=== PATIENT | male | born 1970 | race Caucasian/White ===

== ENCOUNTER 2021-12-11 14:34 | Observation (INO) ==
[2021-12-11] MEDS ORDERED: ASPIRIN CHEW 324 MG PO STA (14:52)
--- NOTE | 2021-12-11 14:57 | Emergency Department Note ---
History of Present Illness General Chief Complaint: Chest Pain Stated Complaint: chest pain Time Seen by Provider: 12/11/21 14:48 History of Present Illness Provider Complaint: chest pain Onset (ago): day(s) 5 Duration: intermittent Onset: during rest Pain Location: substernal and left chest Pain Radiation: LUE Severity: moderate Maximum Pain Intensity: 5 Current Pain Intensity: 0 Quality: + aching, + heaviness and + dull Relieved By: + nothing Exacerbated By: + nothing Context: no recent illness, no recent surgery, no recent immobilization, no recent travel, no trauma/injury, no new medications or no history of DVT/PE Associated symptoms: no vomiting, no dyspnea, no palpitations, no fever, no cough or no leg swelling Treatments prior to arrival: none Home Medications Medication Instructions Recorded Confirmed Type capsaicin 0.025 % topical cream 1 applic TOPICAL TID PRN 12/11/21 12/11/21 H istory cetirizine 10 mg tablet 10 mg PO DAILY 12/11/21 12/11/21 History diclofenac sodium 50 mg 50 mg PO TID PRN 12/11/21 12/11/21 History tablet,delayed release pantoprazole 40 mg tablet,delayed 40 mg PO DAILY 12/11/21 12/11/21 History release Allergies Allergy/AdvReac Type Severity Reaction Status Date / Time Penicillins Allergy Unknown Verified 12/11/21 15:34 OC SPRAY CONTRAINDICATION Allergy Unknown Uncoded 12/11/21 15:34 Past Med/Surg History Medical History Abdominal pain No pertinent family history Surgical History No pertinent past surgical history Social History Smoking Status: Unknown if ever smoked Preferred Language: Icelandic Feels Safe at Home: Hesitant to Answer Review of Systems A total of 10 systems reviewed and were otherwise negative Physical Exam Vital Signs Vital Signs - 24 hr 12/11/21 14:52 12/11/21 14:56 12/11/21 15:00 Pulse Rate 77 78 75 Pulse Rate from SpO2 Sensor 78 75 Pulse Rhythm Regular Respiratory Rate 17 26 H Pulse Oximetry 99 94 94 Oxygen Delivery Method Room Air Sepsis Recent Fever Within 48 Hours Sepsis New/Unexplained Change in Mental Status Sepsis Action Taken by Nursing 12/11/21 15:30 12/11/21 15:45 Pulse Rate 75 Pulse Rate from SpO2 Sensor 70 Pulse Rhythm Respiratory Rate 14 Pulse Oximetry 98 99 Oxygen Delivery Method Room Air Sepsis Recent Fever Within 48 Hours No Sepsis New/Unexplained Change in Mental Status N/A Sepsis Action Taken by Nursing No Action Required Physical Exam GENERAL: He is oriented to person, place, and time. He appears well-developed and well-nourished. He does not appear distressed. HENT: Exam performed. - Head: Normocephalic and atraumatic. - Right Ear: External ear normal. No mastoid tenderness. - Left Ear: External ear normal. No mastoid tenderness. - Mouth/Throat: The oropharynx is clear and moist. No trismus in the jaw. No dental abscesses or uvula swelling. No oropharyngeal exudate or tonsillar abscesses. EYES: Conjunctivae and EOM are normal. Pupils are equal, round, and reactive to light. Right eye exhibits no discharge. Left eye exhibits no discharge. No scleral icterus. NECK: Normal range of motion. Neck supple. No JVD present. No spinous process tenderness present. No carotid bruit present. No rigidity. No tracheal deviation and normal range of motion present. No Brudzinski's sign and no Kernig's sign noted. CV: Normal rate, regular rhythm, normal heart sounds and intact distal pulses. There is no peripheral edema. Palpable radial pulses bue. PULM/CHEST: Effort normal and breath sounds normal. No respiratory distress. No stridor. He has no wheezes. He has no rales. - Chest Wall: He exhibits no tenderness. ABD: The abdomen is soft. Bowel sounds are normal. He has no distension. No mass is present. There is no tenderness. There is no rebound, no guarding, no Jacinto's sign and no tenderness at McBurney's point. Rovsig negative. MUSC/SKEL: Normal range of motion. There is no peripheral edema, tenderness or deformity. LYMPH: No cervical adenopathy. NEURO: He is alert and oriented to person, place, and time. He has normal strength. No cranial nerve deficit or sensory deficit. Coordination and gait normal. GCS eye subscore is 4. GCS verbal subscore is 5. GCS motor subscore is 6. Cerebellar tests wnl. SKIN: Skin is warm and dry. He is not diaphoretic. PSYCH: He has a normal mood and affect. Behavior is normal. Judgment and thought content normal. Course Course 1448: The patient was evaluated in room B12. A complete history and physical exam was performed Cardiac monitoring: An order was placed for continuous cardiac monitoring. The monitor shows a rate of 80 with sinus rhythm 1616: Vital signs stable. Patient reports no chest pain or difficulty breathing at this time. Labs and imaging within normal limits. Given the patient's new left bundle branch block and his complaint of chest pain the patient will be admitted to the hospitalist team. Spoke with Samreen stated to admit to Dr. Hsu Administered Medications Discontinued Medications Aspirin (Aspirin Chew 324 Mg) 324 mg PO NOW STA Stop: 12/11/21 14:53 Last Admin: 12/11/21 15:18 Dose: Not Given Documented by: [id number] Medical Decision Making Laboratory Data Result diagrams: 12/11/21 14:25 12/11/21 14:25 Labs: Lab Results 12/11/21 12/11/21 12/11/21 Range/Units 14:25 14:25 15:05 WBC 8.25 (4.8-10.8) K/uL RBC 5.65 (4.7-6.1) M/uL Hgb 15.9 (14.0-18.0) g/dL Hct 46.3 (42-52) % MCV 81.9 (80-100) fL MCH 28.1 (25-34) pg MCHC 34.3 (32-36) g/dL RDW Std Deviation 39.7 (36.4-46.3) fL RDW Coeff of [place] 13.3 (11.5-14.5) % Plt Count 296 (130-400) K/uL MPV 10.1 (7.4-10.4) fL Immature Gran % (Auto) 0.4 % Neut % (Auto) 66.3 % Lymph % (Auto) 25.9 % Ocean % (Auto) 5.2 % Eos % (Auto) 1.6 % Baso % (Auto) 0.6 % Neut # (Auto) 5.47 (1.4-6.5) K/uL Lymph # (Auto) 2.14 (1.2-3.4) K/uL Ocean # (Auto) 0.43 (0.11-0.59) K/uL Eos # (Auto) 0.13 (0-0.5) K/uL Baso # (Auto) 0.05 (0-0.2) K/uL Immature Gran # (Auto) 0.03 H (0.00-0.02) K/uL Sodium 138 (136-145) mmol/L Potassium 4.0 (3.5-5.1) mmol/L Chloride 106 (98-107) mmol/L Carbon Dioxide 24 (21-32) mmol/L Anion Gap 8 (3-11) BUN 12 (6-23) mg/dl Creatinine 0.96 (0.6-1.4) mg/dl Est Cr Clr Drug Dosing Not Reportable Est GFR ( Amer) 106.4 ml/min Est GFR (Non-Af Amer) 91.8 ml/min BUN/Creatinine Ratio 12.5 (10-20) Glucose 86 (70-99(Fasting)) mg/dl Calcium 9.7 (8.5-10.1) mg/dl Troponin I High Sens 3.8 (0-20) pg/ml Lipase 43 (11-82) U/L SARS-CoV-2, RNA, NAAT NEGATIVE (NEGATIVE) Imaging Data Chest x-ray: Radiologist's impression: Chest X-Ray 12/11/21 14:52 XR chest 1V portable HISTORY: Atypical Chest Pain COMPARISON: None. FINDINGS: The lungs are clear. Cardiac silhouette is normal in size. No pleural effusions. No pneumothorax. IMPRESSION: No acute process. ACT 112: Negative or not required by law. Electronically signed by: Girma Lee M.D. 12/11/2021 3:56 PM ECG Data Indication: chest pain Rate (beats per minute): 81 Rhythm: normal sinus Findings: + LBBB; no prolonged QT Comparison ECG Date: from (May 2019) Change: the following changes noted (patient has new LBBB) MDM Narrative Vital signs stable. Patient reports no chest pain or difficulty breathing at this time. Labs and imaging within normal limits. Given the patient's new left bundle branch block and his complaint of chest pain the patient will be admitted to the hospitalist team. Impression & Plan Chest pain Discharge Plan Visit Data Chief Complaint: Chest Pain Stated Complaint: chest pain ED Provider: Liz,Mejia Discharge Problem: Chest pain Patient Disposition: Being Evaluated by Hospitalist Forms Stand Alone Forms: [facility] [place] [employer] Prescriptions Prescriptions: No Action diclofenac sodium 50 mg Tablet,Delayed Release (Dr/Ec) 50 mg PO TID PRN (Reason: Pain) RF: 0 cetirizine 10 mg Tablet 10 mg PO DAILY RF: 0 pantoprazole 40 mg Tablet,Delayed Release (Dr/Ec) 40 mg PO DAILY RF: 0 capsaicin 0.025 % Cream 1 applic TOPICAL TID PRN (Reason: FLARE UPS) RF: 0 Referrals Referrals: Phani TABARES [Primary Care Provider] - Discharge Problem: Chest pain Qualifiers: Chest pain type: unspecified Qualified Code(s): R07.9 - Chest pain, unspecified
[2021-12-11 15:23] LABS: Basophils # (auto) 0.05 K/uL (0-0.2); Basophils % (auto) 0.6 %; Eosinophils # (auto) 0.13 K/uL (0-0.5); Eosinophils % (auto) 1.6 %; Hematocrit (blood only) 46.3 % (42-52); Hemoglobin 15.9 g/dL (14.0-18.0); Immature Granulocytes # (auto) 0.03 K/uL (0.00-0.02); Immature Granulocytes % (auto) 0.4 %; Lymphocytes # (auto) 2.14 K/uL (1.2-3.4); Lymphocytes % (auto) 25.9 %; Mean Corpuscular Hemoglobin 28.1 pg (25-34); Mean Corpuscular Hgb Conc 34.3 g/dL (32-36); Mean Corpuscular Volume 81.9 fL (80-100); Mean Platelet Volume 10.1 fL (7.4-10.4); Monocytes # (auto) 0.43 K/uL (0.11-0.59); Monocytes % (auto) 5.2 %; Neutrophils # (auto) 5.47 K/uL (1.4-6.5); Neutrophils % (auto) 66.3 %; Platelet Count 296 K/uL (130-400); RDW Coefficient of Variation 13.3 % (11.5-14.5); RDW Standard Deviation 39.7 fL (36.4-46.3); Red Blood Count 5.65 M/uL (4.7-6.1); White Blood Count 8.25 K/uL (4.8-10.8)
[2021-12-11 15:25] LABS: Anion Gap 8 (3-11); BUN Creatinine Ratio 12.5 (10-20); Blood Urea Nitrogen 12 mg/dl (6-23); Calcium 9.7 mg/dl (8.5-10.1); Carbon Dioxide 24 mmol/L (21-32); Chloride 106 mmol/L (98-107); Est GFR (African American) 106.4 ml/min; Est GFR (Non-African American) 91.8 ml/min; Glucose 86 mg/dl (70-99(Fasting)); Lipase 43 U/L (11-82); Sodium 138 mmol/L (136-145)
[2021-12-11 15:31] LABS: Troponin I High Sensitivity 3.8 pg/ml (0-20)
--- NOTE | 2021-12-11 15:57 | XRay Report ---
XR chest 1V portable HISTORY: Atypical Chest Pain COMPARISON: None. FINDINGS: The lungs are clear. Cardiac silhouette is normal in size. No pleural effusions. No pneumot horax. IMPRESSION: No acute process. ACT 112: Negative or not required by law. Electronically signed by: Girma Lee M.D. 12/11/2021 3:56 PM
--- NOTE | 2021-12-11 16:24 | History & Physical Report ---
Date of Service December 11, 2021 Assessment & Plan (1) Chest pain: Plan: Intermittent chest pain and palpitations x 5-7 days - more persistent today. New LBBB on EKG per PA at [facility], confirmed LBBB in ED. - Observe on telemetry - Serial troponin - Repeat EKG in AM - Consult cardiology - will make pt NPO after midnight in case cath is needed - If recurrent chest pain or troponin elevation, consider addition of heparin gtt - Start aspirin 81 mg daily - Labs in AM to include lipids, A1c, and TSH - Check ECHO (2) GERD (gastroesophageal reflux disease): (3) Allergic rhinitis: Plan: Continue other outpatient medications as appropriate Pt seen and evaluated with collaborating physician, Dr. Hsu. Plan of care discussed and as outlined above. DVT Prophylaxis: subQ heparin Code Status: Full code Rene Carter PA-C History of Present Illness Chief Complaint: Chest pain Primary Care Provider: [facility] This is a 51 y/o male with a PMH of GERD, seasonal allergies and OA who was brought to the ED today from [facility] with chest pain x 5-7 days. He describes palpitations with "skipping" beats with associated ache in chest with radiation to left arm and shoulder but not to the neck. These symptoms have been intermittent x past few days but more persistent today so brought for evaluation. Never had cardiac issues in the past. No chest pain at present. No specific aggravating or alleviating factors. Breathing feels like it's catching when he has the symptoms but is okay otherwise. Prior to today symptoms lasted 20 minutes at most. No trauma to the chest. Denies current tobacco or EtOH. Does drink coffee - 3-4 cups/day. No abd pain, N/V/D, fevers, chills, sweats, visual changes, dizziness, weakness. Father had a history of cardiac issues including prior [place] - at age 40. Pt does report that he recently starte d diclofenac for arthritis pain but only using PRN - not TID as prescribed. Allergies Allergy/AdvReac Type Severity Reaction Status Date / Time Penicillins Allergy Unknown Verified 12/11/21 15:34 OC SPRAY CONTRAINDICATION Allergy Unknown Uncoded 12/11/21 15:34 Home Medications Medication Instructions Recorded Confirmed Type capsaicin 0.025 % topical cream 1 applic TOPICAL TID PRN 12/11/21 12/11/21 History cetirizine 10 mg tablet 10 mg PO DAILY 12/11/21 12/11/21 History diclofenac sodium 50 mg 50 mg PO TID PRN 12/11/21 12/11/21 History tablet,delayed release pantoprazole 40 mg tablet,delayed 40 mg PO BID 12/11/21 12/11/21 History release Past Med/Surg History Medical History (Updated 12/11/21 @ 17:08 by Fern Carter PA-C) Allergic rhinitis GERD (gastroesophageal reflux disease) Osteoarthritis Surgical History No pertinent past surgical history Family History (Updated 12/11/21 @ 17:08 by Fern Carter PA-C) Father Diabetes Myocardial infarction Kidney disease Social History (Updated 12/11/21 @ 17:08 by Fern Carter PA-C) Smoking Status: Former smoker Smoking End Date: quit 12 years; Do You Dip or Chew Tobacco: No; Hx Alcohol Use: No (not last 20 years) Hx Substance Use: No Preferred Language: French Communication Ability: Effective Disciplinary Hearing Officer Required: No Beliefs That Will Affect Care: None Current Living Situation: Other Current Living Situation Comment: Immate from [facility] Feels Safe at Home: Yes Safety Concerns: Feels Safe At This Time Review of Systems Review of Systems: All systems reviewed & are unremarkable except as noted in HPI & below Constitutional: no fever, no chills and no sweats Eyes: no diplopia and no worsening vision Respiratory: no cough and no dyspnea Cardiovascular: as per Subjective / HPI Gastrointestinal: no abdominal pain, no nausea, no vomiting and no diarrhea/loose stools Genitourinary: no dysuria Musculoskeletal: no back pain and no neck pain Integumentary: no rash and no yellowing of the skin Neurologic: no dizziness, no syncope and no headache(s) Psychiatric: no depression and no anxiety Physical Exam Constitutional: well developed and well nourished; no acute distress Eyes: + anicteric sclerae Neck: trachea midline Respiratory: no respiratory distress and no labored breathing Auscultation: lungs clear to auscultation bilaterally; no rales, no rhonchi and no wheezes Cardiovascular: Rate/Rhythm: regular rate and regular rhythm Heart Sounds: no murmur Vessels: posterior tibial pulses present and radial pulses present Extremities: no pedal edema Gastrointestinal (Abdomen): Inspection/Auscultation: normal bowel sounds; abdomen not distended Percussion/Palpation: abdomen soft; abdomen nontender Musculoskeletal: Head/Neck/Chest: normocephalic, head atraumatic and neck supple Skin: no jaundice Neurologic: moves all extremities; no focal motor deficits Psychiatric: A+Ox3, euthymic affect Results & Data Results & Data ([facility]) Vital Signs (Past 12 Hours) Vital Signs Pulse Resp Pulse Ox 12/11/21 15:45 99 12/11/21 15:30 75 14 98 12/11/21 15:00 75 26 H 94 12/11/21 14:56 78 17 94 12/11/21 14:52 77 99 Laboratory Results Laboratory Results - last 24 hr 12/11/21 12/11/21 12/11/21 14:25 14:25 15:05 WBC 8.25 RBC 5.65 Hgb 15.9 Hct 46.3 MCV 81.9 MCH 28.1 MCHC 34.3 RDW Std Deviation 39.7 RDW Coeff of Frank[place] 13.3 Plt Count 296 MPV 10.1 Immature Gran % (Auto) 0.4 Neut % (Auto) 66.3 Lymph % (Auto) 25.9 Marin % (Auto) 5.2 Eos % (Auto) 1.6 Baso % (Auto) 0.6 Neut # (Auto) 5.47 Lymph # (Auto) 2.14 Marin # (Auto) 0.43 Eos # (Auto) 0.13 Baso # (Auto) 0.05 Immature Gran # (Auto) 0.03 H Sodium 138 Potassium 4.0 Chloride 106 Carbon Dioxide 24 Anion Gap 8 BUN 12 Creatinine 0.96 Est Cr Clr Drug Dosing Not Reportable Est GFR ( Amer) 106.4 Est GFR (Non-Af Amer) 91.8 BUN/Creatinine Ratio 12.5 Glucose 86 Calcium 9.7 Troponin I High Sens 3.8 Lipase 43 SARS-CoV-2, RNA, NAAT NEGATIVE Diagnostic Findings Chest X-ray 12/11/21 - IMPRESSION: No acute process. Medications Administered Discontinued Medications Aspirin (Aspirin Chew 324 Mg) 324 mg PO NOW STA Stop: 12/11/21 14:53 Last Admin: 12/11/21 15:18 Dose: Not Given Documented by: [id number] Code Status & VTE Plan VTE Prophylaxis Plan VTE Prophylaxis will be ordered: Yes Supervising Physician Co-Signing Physician Notes Patient is a 51-year-old male with history of GERD, seasonal allergies and no other significant past medical history presents with history of intermittent palpitations, chest pain, associated shortness of breath which has been going on for about a 1 week duration. Patient also states that he feels skipping his heartbeats occasionally. He describes chest pain as aching, radiating to left arm, back. He denies any aggravating or relieving factors. He admits to having significant family history, his father having heart attack in his 40s expiring from it. He was a former smoker. Currently while in ED, patient is chest pain- free. Please review HPI for complete details of presentation. On exam patient is well-built and nourished, no apparent distress, normocephalic atraumatic, EOMI, normal breath sounds, clear to auscultation, S1-S2, no murmur, no pedal edema, abdomen soft, nontender, normal bowel sounds, alert, awake, oriented, grossly no focal deficits. Initial troponin is negative. EKG showed left bundle branch block which is new when compared to prior EKG. Also EKG shows history of PVCs. Chest x-ray showed no acute process. Patient is admitted for management of chest pain rule out ACS. Plan to start on IV heparin if patient develops recurrence of chest pain or elevation of troponin noted. Started on aspirin 81 mg daily. Check lipid panel, HbA1c, TSH, resting echo. Cardiology consulted. N.p.o. after midnight. Further management based on investigations. I personally reviewed the record. Patient is interviewed and examined at bedside. Patient's care is coordinated with Fern Carter PA-C. Please refer to the documentation above for details of patient's presentation and for discussion of other issues. (1) Chest pain Chest pain type: unspecified Qualified Code(s): R07.9 - Chest pain, unspecified
[2021-12-11] MEDS ORDERED: ACETAMINOPHEN 325 MG TAB PO PRN (17:46)
[2021-12-11] MEDS ORDERED: NITROGLYCERIN SL 0.4 MG/TAB TAB SL PRN (17:46)
[2021-12-11] MEDS: HEPARIN SOD 5,000 UNIT/0.5 ML VIAL SQ SCH (20:07)
[2021-12-11] MEDS: PANTOprazole 40 MG TAB PO SCH (20:07)
[2021-12-12 05:25] LABS: Troponin I High Sensitivity 4.4 pg/ml (0-20)
[2021-12-12 05:45] LABS: Basophils # (auto) 0.04 K/uL (0-0.2); Basophils % (auto) 0.5 %; Eosinophils # (auto) 0.14 K/uL (0-0.5); Eosinophils % (auto) 1.7 %; Hematocrit (blood only) 45.9 % (42-52); Hemoglobin 15.7 g/dL (14.0-18.0); Immature Granulocytes # (auto) 0.03 K/uL (0.00-0.02); Immature Granulocytes % (auto) 0.4 %; Lymphocytes # (auto) 2.46 K/uL (1.2-3.4); Lymphocytes % (auto) 30.2 %; Mean Corpuscular Hemoglobin 28.3 pg (25-34); Mean Corpuscular Hgb Conc 34.2 g/dL (32-36); Mean Corpuscular Volume 82.9 fL (80-100); Mean Platelet Volume 10.2 fL (7.4-10.4); Monocytes # (auto) 0.56 K/uL (0.11-0.59); Monocytes % (auto) 6.9 %; Neutrophils # (auto) 4.91 K/uL (1.4-6.5); Neutrophils % (auto) 60.3 %; Platelet Count 290 K/uL (130-400); RDW Coefficient of Variation 13.3 % (11.5-14.5); Red Blood Count 5.54 M/uL (4.7-6.1); White Blood Count 8.14 K/uL (4.8-10.8)
[2021-12-12] MEDS: HEPARIN SOD 5,000 UNIT/0.5 ML VIAL SQ SCH ×3 (05:46→20:19)
[2021-12-12 05:58] LABS: Albumin Globulin Ratio 1.3 (0.9-2); Albumin Level 4.2 gm/dl (3.4-5.0); BUN Creatinine Ratio 14.9 (10-20); Bilirubin,Total 0.6 mg/dl (0.2-1.0); Calcium 9.5 mg/dl (8.5-10.1); Chol HDL Ratio 4.5 (0-5); Creatinine Clr Calc Pharmacy 103.2 ml/min; Est GFR (African American) 109.1 ml/min; Est GFR (Non-African American) 94.2 ml/min; Globulin 3.2 gm/dl (2.5-4.0); Potassium 4.1 mmol/L (3.5-5.1); Total Protein 7.4 gm/dl (6.0-8.3)
--- NOTE | 2021-12-12 06:37 | Electrocardiogram Report ---
Test Reason : Blood Pressure : / mmHG Vent. Rate : 081 BPM Atrial Rate : 081 BPM P-R Int : 158 ms QRS Dur : 140 ms QT Int : 412 ms P-R-T Axes : 049 -49 086 degrees QTc Int : 478 ms Poor data quality, interpretation may be adversely affected Normal sinus rhythm Left bundle branch block Abnormal ECG When compared with ECG of 23-MAY-2019 14:32, Left bundle branch block is now Present Confirmed by Raul Warren ([id number]) on 12/12/2021 6:37:06 AM Referred By: ED Confirmed By:Raul Warren
[2021-12-12 07:06] LABS: Estimated Average Glucose 108 mg/dl; Hemoglobin A1C 5.4 % (4.5-5.6)
--- NOTE | 2021-12-12 08:09 | Cardiology Consultation ---
Date of Consultation December 12, 2021 Assessment & Plan (1) Chest pain: (2) LBBB (left bundle branch block): (3) Palpitations: Symptoms suspicious of sensed PVCs. PVCs confirmed on telemetry. EKG showed t wave inversions in the inferior/lateral leads, repeat echo did not show a LBBB- LBBB possibly rate related? Symptoms free today. 1. Continue to monitor on telemetry- will hold off on beta sayra therapy due to intermittent LBBB. 2. Will arrange for nuclear stress test on Wednesday 3. Continue ASA 81 mg daily 4. Echo pending Case discussed with Dr. Burnham. Supervising Physician Co-Signing Physician Notes I have seen and examined the patient. I reviewed the medical record and discussed the case with the nurse practitioner. I agree that his symptoms are atypical and may be related to sinus PVCs however given his age and the new left bundle branch block I think he should have a pharmacologic nuclear stress test to screen him for coronary artery disease before he returns to the longterm. Will review the echo when it is completed. History of Present Illness Reason for Consultation: Chest pain, new left bundle branch block [facility]ing Phys[facility] Attending Physician: Jameel Burton MD History of Present Illness 51-year-old male from [facility]. Unknown to the [facility]. Noted palpitations and chest pain x5 to 7 days. Palpitations were described as skipping beats with chest discomfort that radiated to the left arm and shoulder but not neck. Pain was nonexertional no specific aggravating or relieving factors. Symptoms last about 20 minutes each time no exertional shortness of breath. Palpitations described as a heavy heart beat with skipped beats intermittently. No symptoms with activity- notes that he was playing basketball yesterday without concern. Had similar situation a few years back- resolved on its own. EKG showed a new left bundle branch block was also confirmed in the emergency department. EKG this morning showed resolution of left bundle branch block but there is T wave inversions in the inferior and lateral leads. HS Troponin were negative: 3.8, 4.0, 4.4. Chest x-ray showed no acute processes. Upon entrance into the room patient was resting comfortably in bed. Two guards accompanied the patient in the room. Since admission patient has been feeling well without symptoms. No chest pain, shortness of breath, palpitations, dizziness, syncope or near syncope. No orthopnea, PND, or increased lower extremity edema. No fever, chills, cough, hematochezia, melena, or hemoptysis. Hx of cigarette smoking, alcohol and illicit drug use (crack/cocaine last used 2001). Tele SR 60-70s occasional PVCs Past medical history: GERD Osteoarthritis Allergies Allergy/AdvReac Type Severity Reaction Status Date / Time Penicillins Allergy Unknown Verified 12/11/21 15:34 OC SPRAY CONTRAINDICATION Allergy Unknown Uncoded 12/11/21 15:34 Home Medications Medication Instructions Recorded Confirmed Type capsaicin 0.025 % topical cream 1 applic TOPICAL TID PRN 12/11/21 12/11/21 History cetirizine 10 mg tablet 10 mg PO DAILY 12/11/21 12/11/21 History diclofenac sodium 50 mg 50 mg PO TID PRN 12/11/21 12/11/21 History tablet,delayed release pantoprazole 40 mg tablet,delayed 40 mg PO BID 12/11/21 12/11/21 History release Patient History Medical History (Updated 12/12/21 @ 08:09 by VALENTE Ambrose) Allergic rhinitis GERD (gastroesophageal reflux disease) Osteoarthritis Surgical History No pertinent past surgical history Family History (Updated 12/11/21 @ 17:08 by Fern Carter PA-C) Father Diabetes Myocardial infarction Kidney disease Social History (Updated 12/11/21 @ 17:08 by Fern Carter PA-C) Smoking Status: Former smoker Smoking End Date: quit 12 years; Do You Dip or Chew Tobacco: No; Hx Alcohol Use: No (not last 20 years) Hx Substance Use: No Preferred Language: Setswana Communication Ability: Effective Master Yacht Required: No Beliefs That Will Affect Care: None Current Living Situation: Other Current Living Situation Comment: Immate from [facility] Feels Safe at Home: Yes Safety Concerns: Feels Safe At This Time Review of Systems Review of Systems: All systems reviewed & are unremarkable except as noted in HPI & below Physical Exam Physical Exam: General: No acute distress. A+Ox3. HEENT: Normocephalic. Atraumatic. Conjunctiva and sclera clear. NECK: No carotid bruits. No JVD. Carotid upstrokes are brisk. Heart: RRR. S1 and S2 noted without murmur, rubs, gallops. PMI non displaced. Lungs: Clear to auscultation. No wheezes, rhonchi, rales. Abdomen: Normal bowel sounds. Soft. Nontender. No masses or organomegaly. No abdominal bruits. Extremities: No edema. No clubbing or cyanosis. Pulses: radial=2/4, posterior tibial=2/4, dorsalis pedis = 2/4. NEURO: No focal deficits. PSYCH: Normal. Results & Data ([facility]) Vital Signs (Past 12 Hours) Vital Signs Temp Pulse Resp BP Pulse Ox 12/12/21 04:14 36.5 C 60 18 132/92 95 12/11/21 23:06 37.2 C 69 18 142/82 H 92 Laboratory Results Cardiac Enzymes 12/11/21 12/11/21 12/12/21 Range/Units 14:25 22:24 04:35 AST 23 (13-39) U/L Troponin I High Sens 3.8 4.0 4.4 (0-20) pg/ml Lipids 12/12/21 Range/Units 04:35 Triglycerides 198 H (0-150) mg/dl Cholesterol 189 (0-200) mg/dl HDL Cholesterol 42 mg/dl Cholesterol/HDL Ratio 4.5 (0-5) CBC 12/11/21 12/12/21 Range/Units 14:25 04:35 WBC 8.25 8.14 (4.8-10.8) K/uL RBC 5.65 5.54 (4.7-6.1) M/uL Hgb 15.9 15.7 (14.0-18.0) g/dL Hct 46.3 45.9 (42-52) % Plt Count 296 290 (130-400) K/uL Neut # (Auto) 5.47 4.91 (1.4-6.5) K/uL Lymph # (Auto) 2.14 2.46 (1.2-3.4) K/uL Pratt # (Auto) 0.43 0.56 (0.11-0.59) K/uL Eos # (Auto) 0.13 0.14 (0-0.5) K/uL Baso # (Auto) 0.05 0.04 (0-0.2) K/uL Comprehensive Metabolic Panel 12/11/21 12/12/21 Range/Units 14:25 04:35 Sodium 138 139 (136-145) mmol/L Potassium 4.0 4.1 (3.5-5.1) mmol/L Chloride 106 105 (98-107) mmol/L Carbon Dioxide 24 28 (21-32) mmol/L BUN 12 14 (6-23) mg/dl Creatinine 0.96 0.94 (0.6-1.4) mg/dl Glucose 86 93 (70-99(Fasting)) mg/dl Calcium 9.7 9.5 (8.5-10.1) mg/dl AST 23 (13-39) U/L ALT 34 (7-52) U/L Alkaline Phosphatase 116 H (34-104) U/L Total Protein 7.4 (6.0-8.3) gm/dl Albumin 4.2 (3.4-5.0) gm/dl Intake and Output 12/11/21 12/12/21 12/12/21 22:59 06:59 14:59 Output Total 450 / 450 Balance -450 / -450 Output: Urine 450 / 450 Other: Weight 110 kg 89 kg Weight Measurement Method Standing Scale Built in [facility] (1) Chest pain Chest pain type: unspecified Qualified Code(s): R07.9 - Chest pain, unspecified
[2021-12-12] MEDS: ASPIRIN 81 MG ECTAB PO SCH (08:29)
[2021-12-12] MEDS: CETIRIZINE HCL 10 MG TABLET PO SCH (08:29)
[2021-12-12] MEDS: PANTOprazole 40 MG TAB PO SCH ×2 (08:29→20:08)
--- NOTE | 2021-12-12 15:46 | Electrocardiogram Report ---
Test Reason : Blood Pressure : / mmHG Vent. Rate : 059 BPM Atrial Rate : 059 BPM P-R Int : 162 ms QRS Dur : 082 ms QT Int : 424 ms P-R-T Axes : 064 040 -27 degrees QTc Int : 419 ms Sinus bradycardia T wave abnormality, consider inferior ischemia T wave abnormality, consider anterior ischemia Abnormal ECG When compared with ECG of 11-DEC-2021 14:48, Left bundle branch block is no longer Present Confirmed by Reginaldo Frey ([id number]) on 12/12/2021 3:45:49 PM Referred By: [facility] Confirmed By:Reginaldo Frey
--- NOTE | 2021-12-12 16:04 | Hospitalist Progress Note ---
Date of Service December 12, 2021 Assessment & Plan (1) Chest pain: Plan: Per admitting service notes with addendum: - Observe on telemetry - Serial troponin - Repeat EKG in AM - Consult cardiology - will make pt NPO after midnight in case cath is needed - If recurrent chest pain or troponin elevation, consider addition of heparin gtt - Start aspirin 81 mg daily - Labs in AM to include lipids, A1c, and TSH - Check ECHO 12/12 Troponins negative EKG no left bundle branch block Echo: Pending Systems Development Consultant consulted Plan for nuclear stress test on Wednesday Continue aspirin (2) GERD (gastroesophageal reflux disease): (3) Allergic rhinitis: Plan: DVT Prophylaxis: subQ heparin Code Status: Full code Admission and Anticipated Discharge Date Admission Date: December 11, 2021 Subjective Follow-up for chest pain, etc. Seen sitting up in bed, comfortable, not in distress States he feels better overall No recurrence of chest pain while admitted Denies shortness of breath, palpitations, dizziness No other symptom Review of Systems Review of Systems: all noted and negative except for above Physical Exam Physical Exam: General- oriented x 3, not in distress, speaks in sentences with no effort or accessory muscle use Head- atraumatic Eyes- PERRL, EOMI, anicteric ENT- oropharynx clear Neck- supple, no JVD, no adenopathy, no thyromegaly; carotids +2/2, no bruits appreciated Lungs- clear to auscultation bilaterally, no rales/wheezes Heart- normal rate, regular rhythm; no murmur, no gallop, no rub appreciated Abdomen- normal bowel sounds, nondistended, soft, nontender, no masses or hepatosplenomegaly Extremities- no pretibial edema, no calf tenderness; peripheral pulses intact Neuro- alert, oriented x 3; CN 2-12 grossly intact; motor 5/5 bilaterally;sensation 100% on all extremities; no other gross focal neurologic deficits Skin- warm & dry Results & Data Results & Data ([facility]) Vital Signs (Past 12 Hours) Vital Signs Temp Pulse Pulse Resp BP Pulse Ox 12/12/21 15:19 36.7 C 72 20 130/89 96 12/12/21 14:53 69 12/12/21 11:47 37.0 C 65 20 121/88 96 12/12/21 09:00 65 12/12/21 08:00 37.0 C 74 20 120/73 95 12/12/21 04:14 36.5 C 60 18 132/92 95 all noted and reviewed including below (1) Chest pain Chest pain type: unspecified Qualified Code(s): R07.9 - Chest pain, unspecified
[2021-12-13] MEDS: HEPARIN SOD 5,000 UNIT/0.5 ML VIAL SQ SCH ×2 (05:09→12:08)
[2021-12-13] MEDS: CETIRIZINE HCL 10 MG TABLET PO SCH (08:25)
[2021-12-13] MEDS: ASPIRIN 81 MG ECTAB PO SCH (08:25)
[2021-12-13] MEDS: PANTOprazole 40 MG TAB PO SCH (08:25)
--- NOTE | 2021-12-13 11:07 | Cardiology Progress Note ---
Date of Service December 13, 2021 Assessment & Plan (1) Palpitations: (2) Chest pain: (3) LBBB (left bundle branch block): Plan: 51 year old inmate (RAYSA Jeronimo) presented with sensation of chest discomfort "pounding in chest" somewhat atypical for angina. HS troponin levels are normal. Resting echo normal. Telemetry notable for intermittent LBBB, occasional PVCs. Cardiac risk factors- quit smoking 12 years ago, LDL OK at 107 mg/dl, has family history of CAD. Work up thus far is reassuring. No cardiomyopathy on echo. Lexiscan stress recommended given abnormal T waves on EKG. Yesterday it was to late to arrange planned nuclear stress test, given need to order the radiopharmaceutical. Today is Wednesday, , and this test is not available until Wednesday. Pt does not want to stay in hospital. Options explored. First availability as outpatient at [facility] or [facility] is 12/23/21 at [facility]. Paper order by prescription provided to Jasmina in admissions, pt scheduled for test 12/23/21, [address] Dotson scheduled to be covering for our group that day. Recommend home on medications to include ASA 81 mg daily. Metoprolol succinate 12.5 mg daily. Stable for discharge with plan as noted above. Admission and Anticipated Discharge Date Admission Date: December 11, 2021 Subjective Pt seen in follow up. Feels well. No additional complaints. Eager for discharge. Telemetry reveals SR with intermittent episodes of left bundle branch block when rate is > 90 bpm. Review of Systems Review of Systems: All systems reviewed & are unremarkable except as noted in HPI & below Physical Exam 2 Physical Exam: Temp Pulse Resp BP Pulse Ox 36.5 C 65 16 140/84 95 12/13/21 07:36 12/13/21 10:28 12/13/21 07:36 12/13/21 07:36 12/13/21 07:36 Respiratory: normal respiratory effort, lungs clear to auscultation Cardiovascular: RRR, no murmur, no edema Gastrointestinal (Abdomen): normal bowel sounds, soft, nontender, no hepatosplenomegaly Neurologic: PERRL, EOMI, accommodation nl, no face palsy, no dysarthria Results & Data ([facility]) Vital Signs (Past 12 Hours) Vital Signs Temp Pulse Pulse Resp BP Pulse Ox 12/13/21 10:28 65 12/13/21 07:36 36.5 C 66 16 140/84 95 12/13/21 03:17 36.5 C 66 18 132/75 93 12/12/21 23:09 37.0 C 74 18 129/81 96 Laboratory Results Cardiac Enzymes 12/12/21 Range/Units 09:51 Troponin I High Sens 3.0 (0-20) pg/ml Intake and Output 12/12/21 12/13/21 12/13/21 22:59 06:59 14:59 Intake Total 50 / 580 50 / 580 Output Total 500 / 1400 350 / 1400 Balance -450 / -820 -300 / -820 Intake: Oral 50 / 580 50 / 580 Output: Urine 500 / 1400 350 / 1400 Other: Weight 90 kg Weight Measurement Method Built in [facility] Diagnostic Findings EKG 12/12/21: SB at 59 bpm , QRS duration 82 ms, T wave inversion in leas V-3-V5. Echo 12/12/21: LVEF 55-60%, normal wall motion, no significant valve abnormaliities. (1) Chest pain Chest pain type: unspecified Qualified Code(s): R07.9 - Chest pain, unspecified
[2021-12-13] MEDS ORDERED: METOPROLOL SUCC 25MG EXT REL TAB PO SCH (11:15)
--- NOTE | 2021-12-13 12:34 | Hospitalist Progress Note ---
Date of Service December 13, 2021 Assessment & Plan (1) Chest pain: Plan: Per admitting service notes with addendum: - Observe on telemetry - Serial troponin - Repeat EKG in AM - Consult cardiology - will make pt NPO after midnight in case cath is needed - If recurrent chest pain or troponin elevation, consider addition of heparin gtt - Start aspirin 81 mg daily - Labs in AM to include lipids, A1c, and TSH - Check ECHO 12/13 Troponins negative EKG no left bundle branch block Echo: There is mild concentric left ventricular hypertrophy. No regional wall motion abnormalities noted. Left ventricular systolic function is normal. The LV Ejection Fraction = 55-60%. The right ventricle is normal in size and function. There is no significant valvular pathology. Computer Operator consulted- Dr. Burnham and Dr. Solis- recommendations: Outpatient Nuclear Stress test: pt scheduled for test 12/23/21, [address] Dotson scheduled to be covering for our group that day. Recommend home on medications to include ASA 81 mg daily. Metoprolol succinate 12.5 mg daily. Stable for discharge with plan as noted above. (2) GERD (gastroesophageal reflux disease): (3) Allergic rhinitis: Plan: DVT Prophylaxis: subQ heparin Code Status: Full code Admission and Anticipated Discharge Date Admission Date: December 11, 2021 Subjective ff up for chest pain, etc seen resting in bed, comfortable in good spirits states he feels fine overall no chest pain, dyspnea, palpitations, dizziness no other symptoms states he is ready and would like to be discharged Review of Systems Review of Systems: all noted and negative except for above Physical Exam Physical Exam: General- oriented x 3, not in distress, speaks in sentences with no effort or accessory muscle use Eyes- anicteric Neck- no JVD Lungs- clear BS bilaterally, no rales/wheezes Heart- normal rate, regular rhythm; no murmurs Abdomen- normal bowel sounds, nondistended, soft, nontender Extremities- no pretibial edema, no calf tenderness Neuro- alert, oriented x 3; no gross focal neurologic deficits Skin- warm & dry Results & Data Results & Data ([place]) Vital Signs (Past 12 Hours) Vital Signs Temp Pulse Pulse Resp BP Pulse Ox 12/13/21 11:12 37.0 C 78 18 138/85 97 12/13/21 10:28 65 12/13/21 07:36 36.5 C 66 16 140/84 95 12/13/21 03:17 36.5 C 66 18 132/75 93 all noted and reviewed including below (1) Chest pain Chest pain type: unspecified Qualified Code(s): R07.9 - Chest pain, unspecified
--- NOTE | 2021-12-13 12:41 | Discharge Summary ---
Date of Service December 13, 2021 Admission HPI Per Admitting Provider This is a 51 y/o male with a PMH of GERD, seasonal allergies and OA who was brought to the ED today from [facility] with chest pain x 5-7 days. He describes palpitations with "skipping" beats with associated ache in chest with radiation to left arm and shoulder but not to the neck. These symptoms have been intermittent x past few days but more persistent today so brought for evaluation. Never had cardiac issues in the past. No chest pain at present. No specific aggravating or alleviating factors. Breathing feels like it's catching when he has the symptoms but is okay otherwise. Prior to today symptoms lasted 20 minutes at most. No trauma to the chest. Denies current tobacco or EtOH. Does drink coffee - 3-4 cups/day. No abd pain, N/V/D, fevers, chills, sweats, visual changes, dizziness, weakness. Father had a history of cardiac issues including prior SD - at age 40. Pt does report that he recently started diclofenac for arthritis pain but only using PRN - not TID as prescribed. Admission Exam Per Admitting Provider Constitutional: well developed and well nourished; no acute distress Eyes: + anicteric sclerae Neck: trachea midline Respiratory: no respiratory distress and no labored breathing Auscultation: lungs clear to auscultation bilaterally; no rales, no rhonchi and no wheezes Cardiovascular: Rate/Rhythm: regular rate and regular rhythm Heart Sounds: no murmur Vessels: posterior tibial pulses present and radial pulses present Extremities: no pedal edema Gastrointestinal (Abdomen): Inspection/Auscultation: normal bowel sounds; abdomen not distended Percussion/Palpation: abdomen soft; abdomen nontender Musculoskeletal: Head/Neck/Chest: normocephalic, head atraumatic and neck supple Skin: no jaundice Neurologic: moves all extremities; no focal motor deficits Psychiatric: A+Ox3, euthymic affect Principal Diagnosis Chest pain Left bundle branch block Discharge Exam General- oriented x 3, not in distress, speaks in sentences with no effort or accessory muscle use Eyes- anicteric Neck- no JVD Lungs- clear BS bilaterally, no rales/wheezes Heart- normal rate, regular rhythm; no murmurs Abdomen- normal bowel sounds, nondistended, soft, nontender Extremities- no pretibial edema, no calf tenderness Neuro- alert, oriented x 3; no gross focal neurologic deficits Skin- warm & dry Discharge Data Allergies Allergy/AdvReac Type Severity Reaction Status Date / Time Penicillins Allergy Unknown Verified 12/11/21 15:34 OC SPRAY CONTRAINDICATION Allergy Unknown Uncoded 12/11/21 15:34 Consultations 12/11/21 15:58 ED Decision to Admit Stat 12/11/21 17:46 Consult Cardiology Routine Hospital Course (1) Chest pain: 12/13 Chest pain-free since admission Troponins x3 negative EKG new left bundle branch block Echo: There is mild concentric left ventricular hypertrophy. No regional wall motion abnormalities noted. Left ventricular systolic function is normal. The LV Ejection Fraction = 55-60%. The right ventricle is normal in size and function. There is no significant valvular pathology. Fleet Maintenance Foreman consulted- Dr. Burnham and Dr. Solis- recommendations: Outpatient Nuclear Stress test: pt scheduled for test 12/23/21, [address] Dotson scheduled to be covering for our group that day. Recommend home on medications to include ASA 81 mg daily. Metoprolol succinate 12.5 mg daily. Stable for discharge with plan as noted above. Stop diclofenac (2) GERD (gastroesophageal reflux disease): (3) Allergic rhinitis: [facility] back to [facility] facility Outpatient stress test 08/25/2021 at [facility], arrival time 7 AM Total Time Total Time Spent Total Time Spent (In Minutes): >30 minutes Discharge Plan Discharge Items Patient Disposition: [facility] Reason For Visit: CHEST PAIN, NEW LBBB Discharge Diagnosis: CHEST PAIN NEW LEFT BUNDLE BRANCH BLOCK Activity: As commented below Activity Comment: No heavy exertion, increase activity as tolerated gradually Lifting: Wait until after follow-up appointment Exercise/Sports: Wait until after follow-up appointment Non-emergency contact: Primary Care Provider and Fleet Maintenance Foreman Call non-emergency contact if: you have any medication questions, your symptoms worsen, your pain is not controlled, your pain is worsening, your pain is unusual for you, your pain is concerning for you and you have a fever Follow-up/Referrals: Phani TABARES [Primary Care Provider] - Diet: Heart Healthy Addtl Attending Provider Instructions: PLEASE REFER TO YOUR NEW MEDICATION LIST AND FOLLOW INSTRUCTIONS CAREFULLY. YOUR NEW MEDICATIONS INCLUDE: Metoprolol Aspirin PLEASE CALL YOUR PRIMARY CARE PHYSICIAN OR RETURN TO THE ER IF WITH WORSENING OF SYMPTOMS, INCLUDING Chest pain, shortness of breath, palpitations, dizziness,. Outpatient nuclear stress test and [facility] on December 23, 2021, 7 AM arrival time. Pending Studies at Discharge: Yes Studies:: Outpatient nuclear stress test Stand-Alone Forms: My [facility] [employer], Smoking Cessation Skilled Items Patient informed of condition?: Yes DNR: No Discharge Level of Care: Other Communicable Disease: No Discharge Prognosis: Stable Lines: None Urinary Catheter: No Medications and DC Order Prescriptions: New aspirin 81 mg Tablet,Delayed Release (Dr/Ec) 81 mg PO QAM 30 Days Qty: 30 RF: 0 metoprolol succinate 25 mg Tablet Extended Release 24 Hr 12.5 mg PO QAM 30 Days Qty: 15 RF: 0 Continued cetirizine 10 mg Tablet 10 mg PO DAILY RF: 0 pantoprazole 40 mg Tablet,Delayed Release (Dr/Ec) 40 mg PO BID RF: 0 capsaicin 0.025 % Cream 1 applic TOPICAL TID PRN (Reason: FLARE UPS) RF: 0 Discontinued diclofenac sodium 50 mg Tablet,Delayed Release (Dr/Ec) 50 mg PO TID PRN (Reason: Pain) RF: 0 Admission Data Admit Date/Time: 12/11/21 16:22 Attending Provider: Jameel Burton Admit Provider: Carmelo Hsu Primary Care Provider: Phani TABARES Other Providers: Carmelo Hsu ; Blake Burnham
== END 2021-12-13 14:40 ==
LOC: 2E 14:34 → ED 14:34 → SUATTDRO 16:22 → 2E 17:31